=== PATIENT | male | born 1975 | race Caucasian/White ===

== ENCOUNTER 2023-11-24 00:07 | Emergency (ER) | payer OTHER, SELFPAY ==
[2023-11-24 00:10] VITALS: BP 142/73; BMI 48.4
[2023-11-24 00:40] LABS: ALT (SGPT) 48 U/L (0-50); AST (SGOT) 30 U/L (17-59); Alkaline Phosphatase 58 U/L (38-126); Blood Urea Nitrogen 14 mg/dl (9-20); Calcium 9.5 mg/dl (8.4-10.2); Carbon Dioxide 19 mmol/L (22-30); Chloride 103 mmol/L (98-107); Estimated Creatinine Clearance 125 ml/min; Glucose 114 mg/dl (70-99); Potassium 4.1 mmol/L (3.5-5.1); Sodium 138 mmol/L (135-145); Total Bilirubin 0.6 mg/dl (0.2-1.3); Total Protein 7.1 g/dl (6.3-8.2); eGFR > 60.00
[2023-11-24 00:44] LABS: % Basophils 0.7 % (0-2); % Eosinophils 4.2 % (0-6); % Immature Granulocytes 1.2 % (0-0.5); % Lymphocytes 40.4 % (20.5-51.1); % Monocytes 5.7 % (1.7-9.3); % Neutrophils 47.8 % (42.2-75.2); Absolute Basophils 0.1 10^3/uL (0-0.2); Absolute Eosinophils 0.4 10^3/uL (0-0.7); Absolute Immature Granulocytes 0.1 10^3/uL (0-0.05); Absolute Lymphocytes 3.8 10^3/uL (1.2-3.4); Absolute Monocytes 0.5 10^3/uL (0.1-0.6); Absolute Neutrophils 4.5 10^3/uL (1.4-6.5); Hematocrit 48.8 % (39.0-52.0); Hemoglobin 16.3 g/dL (13.0-18.0); Mean Corp Hgb Conc. 33.4 g/dL (33.0-37.0); Mean Corpuscular Hgb 32.5 pg (27.0-31.0); Mean Corpuscular Volume 97.4 fL (80.0-94.0); Mean Platelet Volume 10.4 fL (7.4-10.4); Nucleated Red Blood Cells % 0 % (-); Platelet Count 260 10^3/uL (130-400); Red Blood Cell Count 5.01 10^6/uL (4.70-6.10); Red Cell Dist. Width 12.6 % (11.5-14.5); White Blood Cell Count 9.4 10^3/uL (4.8-10.8)
--- NOTE | 2023-11-24 00:46 | ED.GENMED ---
History of Present Illness
<JIGNESH Guillory - Last Filed: 11/24/23 00:54>
General
Chief Complaint: Fainting/Passed Out
Source: patient and family
Exam Limitations: none
Time Seen by Provider: 11/24/23 00:29
Nursing documentation reviewed up to this point in time: agreed with
Travel History
Have you had any contact with someone who has COVID-19?: No
Do you have any symptoms of coronavirus? Fever > 100 degrees, chills, cough, shortness of breath, sore throat, loss of taste or smell, muscle aches, or headache?: No
History of Present Illness
History of Present Illness:
Pt is a 48 yo male with no pertinent PMH who presents via EMS after passing out at a bar and hitting his head. Pt states that he began drinking between 5-6pm, drank 4x16 oz beers, was sitting on a bar stool talking when friends say he suddenly
passed out, hitting his head. Friends report that he regained consciousness after about 10 seconds. Pt denies chest pain, SOB, dizziness, headache, blurry vision, pre-syncopal symptoms, nausea, vomiting before or after losing consciousness. Denies
prior episodes. Denies taking daily medications. Denies drug or substance use.
Past History
<JIGNESH Guillory - Last Filed: 11/24/23 00:54>
Past History
ED Past Medical History: Other (Sleep apnea uses CPAP, Diverticulitis, )
ED Past Surgical History: Other (wisdom teeth)
Social History
Tobacco: Non-smoker
Alcohol: Occasional
Drug: None
Personal: Single
Living: with family
Employment: Employed
Review of Systems
<JIGNESH Guillory - Last Filed: 11/24/23 00:54>
Review of Systems
Allergies reviewed?: Yes
All Other Systems: ROS reviewed and negative except as documented in HPI and ROS
Phy Exam
<JIGNESH Guillory - Last Filed: 11/24/23 00:54>
General Physical Exam
General Presentation: well appearing and no apparent distress
General Skin: warm and dry
General Habitus: obese
General Mental: alert
General Hydration: appears well hydrated
ENT Exam
ENT Exam: EOMI, TM's normal, pharynx normal, neck supple, normocephalic and swallowing well
Additional ENT: 2' hematoma on posterior head
Eye Exam
Eye Exam: PERRL, EOMI, cornea clear and conjunctiva normal
Cardiovascular Exam
Cardiovascular Exam: regular rate/rhythm, no edema, no gallop, no murmur and normal peripheral pulses
Pulmonary Exam
Pulmonary Exam: lungs clear, no respiratory distress, no rales, no crackles, no rhonchi, no wheezing and no cough
Gastrointestinal Exam
Gastrointestinal Exam: normal bowel sounds, non tender, soft and non distended
Neurological Exam
Neurological Exam: alert, oriented x3 and slurred speech
Skin Exam
Skin Exam: normal color and warm/dry
Psychiatric Exam
Psychiatric Exam: normal mood/affect
Course
<JIGNESH Guillory - Last Filed: 11/24/23 00:54>
Orders/Labs/Results
Orders:
Orders
11/24/23 00:10
Electrocardiogram (*1) Urgent
Reason for Study: Syncope
EKG- Treatment ONCE
11/24/23 00:17
Alcohol Urgent
CMP [Comprehensive Metabolic Panel] Urgent
Complete Blood Count/With Diff Urgent
11/24/23 00:37
Add On- LAB Urgent
Tests Added?: ETOH
11/24/23 00:45
CT Head W/o Iv Contrast Urgent
Comment:
Reason For Exam: passed out, hit head
11/24/23 01:32
Urine Drug Abuse Screen Urgent
Date Specimen was Collected: 11/24/23
Time Specimen was Collected: 01:31
11/24/23 02:30
0.9% Sodium Chloride 1000 ml [Nss] 1,000 ml IV BOLUS
Ketorolac [Toradol] 30 mg IV NOW STA
Abnormal Lab Results
11/24/23
00:17
MCV 97.4 H fL
(80.0-94.0)
MCH 32.5 H pg
(27.0-31.0)
Abs Immat Gran (auto) 0.1 H 10^3/uL
(0-0.05)
Absolute Lymphs (auto) 3.8 H 10^3/uL
(1.2-3.4)
Immature Gran % 1.2 H %
(0-0.5)
Carbon Dioxide 19 L mmol/L
(22-30)
Glucose 114 H mg/dl
(70-99)
11/24/23 00:17
11/24/23 00:17
Vital Signs
Initial and Last Documented VS:
Initial Vital Signs
Temp Pulse Resp BP Pulse Ox
98.1 F 72 13 142/73 97
11/24/23 00:10 11/24/23 00:10 11/24/23 00:10 11/24/23 00:10 11/24/23 00:10
Last Documented Vital Signs
Temp Pulse Resp BP Pulse Ox
98.1 F 72 13 142/73 97
11/24/23 00:10 11/24/23 00:10 11/24/23 00:10 11/24/23 00:10 11/24/23 00:10
<Nakita Chacon, DO - Last Filed: 11/24/23 04:28>
Orders/Labs/Results
Orders:
Orders
11/24/23 00:10
Electrocardiogram (*1) Urgent
Reason for Study: Syncope
EKG- Treatment ONCE
11/24/23 00:17
Alcohol Urgent
CMP [Comprehensive Metabolic Panel] Urgent
Complete Blood Count/With Diff Urgent
11/24/23 00:37
Add On- LAB Urgent
Tests Added?: ETOH
11/24/23 00:45
CT Head W/o Iv Contrast Urgent
Comment:
Reason For Exam: passed out, hit head
11/24/23 01:32
Urine Drug Abuse Screen Urgent
Date Specimen was Collected: 11/24/23
Time Specimen was Collected: :31
11/24/23 02:30
0.9% Sodium Chloride 1000 ml [Nss] 1,000 ml IV BOLUS
Ketorolac [Toradol] 30 mg IV NOW STA
Abnormal Lab Results
11/24/23
00:17
MCV 97.4 H fL
(80.0-94.0)
MCH 32.5 H pg
(27.0-31.0)
Abs Immat Gran (auto) 0.1 H 10^3/uL
(0-0.05)
Absolute Lymphs (auto) 3.8 H 10^3/uL
(1.2-3.4)
Immature Gran % 1.2 H %
(0-0.5)
Carbon Dioxide 19 L mmol/L
(22-30)
Glucose 114 H mg/dl
(70-99)
11/24/23 00:17
11/24/23 00:17
Vital Signs
Initial and Last Documented VS:
Initial Vital Signs
Temp Pulse Resp BP Pulse Ox
98.1 F 72 13 142/73 97
11/24/23 00:10 11/24/23 00:10 11/24/23 00:10 11/24/23 00:10 11/24/23 00:10
Last Documented Vital Signs
Temp Pulse Resp BP Pulse Ox
98.1 F 72 13 142/73 97
11/24/23 00:10 11/24/23 00:10 11/24/23 00:10 11/24/23 00:10 11/24/23 00:10
<Nakita Chacon DO - Last Filed: 11/24/23 04:28>
*Radiology
Radiology exam reviewed: radiology read reviewed (CT of the head shows no intracranial traumatic findings. There is note of severe pansinusitis, moderate left and minimal right mastoid effusions.)
*Pulse Oximetry
Patient hypoxic: no
*EKG
Interpreted by ED Provider?: Yes
Interpretation: normal
Comparison EKG: no comparison EKG present
Rate: normal
Rhythm: sinus
[place]: normal axis
Interval: normal interval
QRS Pattern: normal QRS
Ischemia: non-specific ST changes
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
Rate: normal
Interpretation: normal
Rhythm: sinus
*Critical Care Note
Total Time (30-74mins, 75-104mins- exclusive of procedures): Not Applicable
ED Attending Note
<JIGNESH Guillory - Last Filed: 11/24/23 00:54>
-
Portions of this chart may have been created with voice recognition software.� Occasional wrong word or��sound alike� substitutions may have occurred due to the inherent limitations of voice recognition software.
<Nakita Chacon DO - Last Filed: 11/24/23 04:28>
ED Attending Note
Patient seen and examined by attending physician: Yes
I performed the substantive portion of visit, reviewed & personally made and approve the management plan that is documented in note by myself or REYNA.: Yes
I performed a history and physical exam of patient and discussed management with resident, I reviewed resident's note and agree with documented findings and plan of care.: Yes
ED Attending Note:
This is a 48-year-old gentleman who has history of obstructive sleep apnea, morbid obesity, diverticulitis who admits to drinking beer while with friends at a bar. Admits to consuming 416 ounce [place] lights over. Of approximately 5 hours and also
consumed some hot wings over that time. While sitting on a barstool patient suddenly passed out and fell off of the stool onto the floor striking the back of his head. He reports no prodromal symptoms; he states he was talking with friends and the
next thing he knows he was lying on the floor with several people standing around him. He was not incontinent of bowel or bladder. There was no report of seizure-like activity. No history of similar episodes of syncope.
He takes no medicines on a daily basis including no anticoagulants and adamantly denies drug use.
He does admit to moderate alcohol consumption generally 3 times per week but denies daily alcohol use.
He does admit to mild to moderate posterior headache at site of right posterior parietal scalp contusion but denies neck nor back pain. Other than this he states 'I feel fine'
Prior to tonight he has been feeling well.
48-year-old obese gentleman appears his stated age, awake and alert, pleasant, appears in no acute distress. He does have an intermittent mild speech impediment, intermittent mild stuttering which patient states is chronic and tends to worsen when
he is anxious.
HEENT: There is a soft tissue contusion with superficial abrasion right posterior parietal scalp with mild to moderate local tenderness to palpation. There is no bleeding. No palpable bony abnormality. Pupils are equal reactive to light,
extraocular muscles intact. Posterior pharynx is clear. Tongue is intact without abrasion or bite newman. There is a patent without rhinorrhea nor epistaxis. TMs are clear bilaterally.
Neck: Supple, no midline bony tenderness, full range of motion without difficulty nor pain.
Heart is regular rate and rhythm.
Lungs are clear to auscultation. Respirations are easy nonlabored.
Abdomen is rotund, soft, nondistended, nontender.
Extremities without clubbing or cyanosis nor edema. Peripheral pulses are full and equal. Nontender. Good tone.
Skin is warm and dry, normal color. Good turgor. No rash. No abrasions.
Neuro: Awake alert and oriented x 3. No focal neurodeficits. Motor strength is 5/5 bilaterally. Gross sensation is intact. Gait is gonzales and steady.
Patient presents after syncopal event with right posterior parietal scalp contusion.
No prodromal symptoms. Nothing in history to suggest seizure activity.
Syncope may be alcohol consumption related, other consideration is arrhythmia, electrolyte abnormality, dehydration, vasovagal episode.
Labs are pending. Will check EtOH level check UDS for completeness sake.
Will check CT of the head.
Will continue monitoring tech.
EKG shows normal sinus rhythm, normal axis. Nonspecific flattened T waves 3 and aVF, otherwise unremarkable.
11/24/2023 0224 AM
Patient remains bright and alert. CAT scan shows no acute traumatic intracranial findings. There is note of severe sinusitis on CAT scan. Patient does note sinusitis symptoms 2 weeks ago, has been improving. He has not had a fever nor chills.
He does note moderate posterior headache, primarily at posterior scalp contusion site. Prior to tonight he has not been complaining of headaches.
Monitor continues to show normal sinus rhythm. No evidence of ectopy.
Labs are unremarkable, normal white blood cell count, unremarkable chemistries. Alcohol level elevated at 151. UDS is negative as expected.
Given IV dose of Toradol for headache and continue to observe.
He has successfully ambulated to and from the bathroom with steady unaided gait.
11/24/2023 0426 AM
Patient reports complete relief of headache, resting comfortably.
Monitor continues to show normal sinus rhythm without ectopy. He remains hemodynamically stable.
Ambulated to and from the bathroom with steady unaided gait.
Will discharge to home with recommendations to avoid any further alcohol at least over the next several days and otherwise stay well-hydrated on a daily basis.
Follow-up with primary care physician for recheck.
As patient states sinusitis symptoms have markedly improved, will hold off on antibiotics and instead recommend follow-up with PCP.
Discharge Plan
Departure
Patient Disposition: Home (Routine Discharge)
Date of Disposition: 11/24/23
Time of Disposition: 04:26
Patient with high blood pressure during this ER visit?: No
Condition: Good
Discharge Problem:
Syncope, posterior scalp contusion, Sinusitis
Instructions: Sinusitis, Adult (DC), Syncope (Fainting) (DC)
Prescriptions:
No Action
No Current Medications
0
Referrals:
Katy Sarabia PA-C [Family Provider] - Call in 1-3 days for appt
Interventions
Interventions:
*Risk Screen - Suicide Last Done: 11/24/23 00:10
*General Assessment Last Done: 11/24/23 00:10
*Neglect/Abuse Screening Last Done: 11/24/23 00:10
ED- Fall Risk Assessment Last Done: 11/24/23 01:01
*ED COVID-19 Vaccine History Last Done: 11/24/23 00:10
ED- Cardiac Assessment Last Done: 11/24/23 01:01
ED- Neurological Assessment Last Done: 11/24/23 01:01
[2023-11-24 01:00] LABS: Alcohol 151 mg/dl
[2023-11-24 01:31] VITALS: BP 136/82
[2023-11-24 01:58] LABS: Amphetamines Negative (Negative); Barbiturates Negative (Negative); Benzodiazepines Negative (Negative); Buprenorphine Negative (Negative); Cocaine Negative (Negative); Methamphetamines Negative (Negative)
[2023-11-24 01:59] LABS: Marijuana Negative (Negative); Methadone Negative (Negative); Opiates Negative (Negative); Phencyclidine Negative (Negative); Tricyclic Antidepressants Negative (Negative)
[2023-11-24 02:00] VITALS: BP 133/68
[2023-11-24 03:00] VITALS: BP 123/68
[2023-11-24] MEDS: NSS 1000 IV (03:00)
[2023-11-24] MEDS: TORADOL 30 MG IV (03:00)
[2023-11-24 04:00] VITALS: BP 113/52
== END 2023-11-24 05:21 | disposition home or self-care (01) ==
LOC: EMR 00:07
PROVIDERS: EMERGENCY PHYSICIAN Emergency Medicine; FAMILY PHYSICIAN Physician Assistant Medical
DX: R55 Syncope and collapse (principal); S00.03XA Contusion of scalp, initial encounter; J32.4 Chronic pansinusitis; W08.XXXA Fall from other furniture, initial encounter; G47.33 Obstructive sleep apnea (adult) (pediatric); E66.01 Morbid (severe) obesity due to excess calories
CPT/HCPCS: 99285; 96374; 96361; 70450; 80053; 80306; 82077; 85025; 93005

== ENCOUNTER → 2023-12-09 14:27 | Outpatient (REF) | payer OTHER, SELFPAY | LOC: HWRCS 14:27 | PROVIDERS: ATTENDING PHYSICIAN Physician Assistant Medical | DX: R55 Syncope and collapse (principal) | CPT/HCPCS: 93306 ==

== ENCOUNTER → 2025-06-17 16:02 | Outpatient (REF) | payer OTHER, SELFPAY | LOC: RAD 16:02 | PROVIDERS: ATTENDING PHYSICIAN Physician Assistant Medical | DX: M25.552 Pain in left hip (principal) | CPT/HCPCS: 73502 ==